=== PATIENT | female | born 1945 | race Caucasian/White ===

== ENCOUNTER 2017-11-03 11:39 | Emergency (ER) | payer MEDICARE ==
[2017-11-03] MEDS ORDERED: TETANUS & DIPHTHERIA TOX,ADULT 0.5 ML VIAL ONE (12:44)
--- NOTE | 2017-11-03 13:10 | RAD REPORT ---
EXAM DESCRIPTION: RAD - Hand Right 2 View - 11/03/2017 12:55 pm CLINICAL HISTORY: Right hand pain and swelling FINDINGS: No fracture or dislocation is seen. No bony destructive lesion is seen
--- NOTE | 2017-11-03 13:46 | EDPHYS ---
Physician Documentation [facility] Name: Sol Tejeda Age: 72 yrs Sex: Female : 1945 Arrival Date: 11/03/2017 Time: 11:48 Bed 26 Private MD: ED Physician Raymundo Zavala HPI: 11/03 12:14 This 72 yrs old Female presents to ER via Ambulatory with complaints of rh1 Insect Bite. 12:14 The patient or guardian reports pain, swelling, tenderness. The complaints affect the rh1 dorsal aspect of middle phalanx of right index finger and dorsal aspect of distal phalanx of right index finger. Context: The problem was sustained at home, resulted from an unknown cause. Onset: The symptoms/episode began/occurred last night. Modifying factors: The symptoms are alleviated by nothing, the symptoms are aggravated by movement. Associated signs and symptoms: Pertinent negatives: cyanosis distally, decreased sensation distally, fever, numbness distally, tingling distally, vomiting. Severity of symptoms: At their worst the symptoms were moderate, in the emergency department the symptoms are unchanged. The patient has not experienced similar symptoms in the past. The patient has not recently seen a physician. Pt. reports she was working outside in garden yesterday, working with [employer]. Last night she noticed redness, "blue color" at palmar aspect of right index finger, swelling, and tenderness. This am swelling and redness have improved, there is no blue discoloration, and she continues with tenderness and she noticed a small "black spot" at dorsal aspect of finger. She is unaware of a specific injury yesterday, states "I don't know if a spider bit me, or if I might have gotten a lupe cutler thorn in it." Denies any paresthesias, weakness, fever/chills. Denies any need for pain medication at this time.. Historical: - Allergies: 11:52 Latex, Natural Rubber; la1 - Home Meds: 12:01 lisinopril 20 mg oral tab [Active]; Simvastatin Oral 1 tab once daily [Active]; tw2 - PMHx: 11:52 Hypertension; Pneumonia; psoriasis; la1 - Immunization history:: Adult Immunizations up to date, Last tetanus immunization: unknown. - Social history:: Smoking status: Patient/guardian denies using tobacco. ROS: 12:14 Constitutional: Negative for fever, chills rh1 12:14 Abdomen/GI: Negative for nausea and vomiting. 12:14 MS/extremity: Positive for decreased range of motion, erythema, pain, swelling, tenderness, Negative for paresthesias. 12:14 Skin: Positive for cellulitis, erythema, swelling. 12:14 Neuro: Negative for numbness, tingling, weakness. 12:14 All other systems are negative. Exam: 12:14 Constitutional: This is a well developed, well nourished patient who is awake, alert, rh1 and in no acute distress. Head/Face: Normocephalic, atraumatic. Cardiovascular: Regular rate and rhythm with a normal S1 and S2. No gallops, murmurs, or rubs. No JVD. No pulse deficits. Respiratory: Lungs have equal breath sounds bilaterally, clear to auscultation. No rales, rhonchi or wheezes noted. No increased work of breathing. 12:14 Musculoskeletal/extremity: Extremities: grossly normal except: noted in the dorsal aspect of middle phalanx of right index finger and dorsal aspect of distal phalanx of right index finger: decreased ROM, erythema, pain, swelling, tenderness, with mild swelling at DIP and distal phalanx, mild erythema primarily at dorsal aspect of finger; no sausage finger, no pain with passive extension, There is no evidence of deformity, ecchymosis, ROM: intact in all extremities, full active range of motion, in the left hand, right arm and left arm, and all fingers at right hand other than index, full passive range of motion, in the right hand, left hand, right arm and left arm, limited active range of motion, in the dorsal aspect of middle phalanx of right index finger and dorsal aspect of distal phalanx of right index finger, limited active range of motion due to pain, in the dorsal aspect of middle phalanx of right index finger and dorsal aspect of distal phalanx of right index finger, limited passive range of motion due to pain, in the dorsal aspect of middle phalanx of right index finger and dorsal aspect of distal phalanx of right index finger, Pulses: noted to be 2+ in the right radial artery and left radial artery, Perfusion: the extremity is pink, warm, with brisk capillary refill, Sensation intact. 12:14 Skin: abscess, not appreciated, cellulitis, that is minimal, that is mild, well demarcated, on the dorsal aspect of distal middle phalanx of right index finger and dorsal aspect of distal phalanx of right index finger. 12:14 Neuro: Orientation: is normal, to person, place \\T\\ time. Mentation: is normal, lucid, able to follow commands, Motor: is normal, moves all fours, Sensation: is normal, no obvious gross deficits, numbness, is not appreciated, tingling, is not appreciated, Gait: is steady, at a normal pace, without difficulty. Vital Signs: 11:52 BP 116 / 69; Pulse 75; Resp 16; Temp 97.1; Pulse Ox 100% on R/A; Weight 88.45 kg; la1 Height 5 ft. 9 in. (175.26 cm); 13:11 BP 115 / 67; Pulse 66; Resp 16; Pulse Ox 99% on R/A; tw2 11:52 Body Mass Index 28.80 (88.45 kg, 175.26 cm) la1 MDM: 12:14 Patient medically screened. rh1 13:44 Data reviewed: vital signs, nurses notes, radiologic studies, plain films, and as a rh1 result, I will. Data interpreted: Pulse oximetry: on room air is 99 %. Interpretation: normal. 13:44 Counseling: I had a detailed discussion with the patient and/or guardian regarding: the rh1 historical points, exam findings, and any diagnostic results supporting the discharge/admit diagnosis, radiology results, the need for outpatient follow up, a family practitioner, a hand specialist, to return to the emergency department if symptoms worsen or persist or if there are any questions or concerns that arise at home. 13:44 Special discussion: I discussed in detail with the patient the higher chance of wound rh1 infection based on his presenting history. discussed potential for fungal infection with some lupe thorn sticks, and importance of monitoring finger for healing. 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 Exp: tw2 12/22/2019. Lot #: [id number]. } Route: IM; Site: right deltoid; 13:41 Follow up: Response: No adverse reaction tw2 Disposition: 17:48 Co-signature as Attending Physician, Raymundo Zavala MD. rn Disposition: 11/03/17 13:46 Discharged to Home. Impression: Cellulitis of right finger. - Condition is Stable. - Discharge Instructions: Cellulitis. - Prescriptions for Keflex 500 mg Oral Capsule - take 1 capsule by ORAL route every 12 hours for 10 days; 20 capsule. Bactrim DS 800- 160 mg Oral Tablet - take 1 tablet by ORAL route every 12 hours for 10 days; 20 tablet. - Medication Reconciliation Form, Thank You Letter, Antibiotic Education, Prescription Opioid Use form. - Follow up: Private Physician; When: 1 - 2 days; Reason: Recheck today's complaints, Continuance of care, Re-evaluation by your physician. Follow up: Emergency Department; When: As needed; Reason: Fever > 102 F, If symptoms return, Trouble breathing, Worsening of condition. Follow up: Omar Baker MD; When: 1 - 2 days; Reason: Further diagnostic work-up, Recheck today's complaints, Continuance of care. - Problem is new. - Symptoms are unchanged. Signatures: Dispatcher [employer] EDMS Raymundo Zavala MD MD rn Attema, Lee, RN RN la1 Keila Maravilla NP RESIN MAKER [facility] Samreen Rainey RN RN tw2 Corrections: (The following items were deleted from the chart) 13:45 12:14 Pt. reports she was working outside in garden yesterday, working with [employer]. Last night she noticed redness, "blue color" at palmar aspect of right index finger, swelling, and tenderness. This am swelling and redness have improved, there is no blue discoloration, and she continues with tenderness and she noticed a small "black spot" at dorsal aspect of finger. She is unaware of a specific injury yesterday, states "I don't know if a spider bit me, or if I might have gotten a lupe cutler thorn in it." Denies any paresthesias, weakness, fever/chills.. [facility] 15:25 13:44 Counseling: I had a detailed discussion with the patient and/or guardian [facility] regarding: the historical points, exam findings, and any diagnostic results supporting the discharge/admit diagnosis, radiology results, the need for outpatient follow up, a family practitioner, a hand specialist, to return to the emergency department if symptoms worsen or persist or if there are any questions or concerns that arise at home, rh1
--- NOTE | 2017-11-03 13:46 | ER ---
Nurse's Notes [facility] Name: Sol Tejeda Age: 72 yrs Sex: Female : 1945 Arrival Date: 11/03/2017 Time: 11:48 Bed 26 Private MD: Diagnosis: Cellulitis of right finger Presentation: 11/03 11:51 Presenting complaint: Patient states: My right index finger is red and swollen. la1 Transition of care: patient was not received from another setting of care. Onset of symptoms was November 03, 2017. Care prior to arrival: None. 11:51 Method Of Arrival: Ambulatory la1 11:51 Acuity: LORNE 4 la1 Triage Assessment: 12:02 Bite description: by unknown if insect bite or a thorn from the lupe cutler, animal tw2 information:. Historical: - Allergies: 11:52 Latex, Natural Rubber; la1 - Home Meds: 12:01 lisinopril 20 mg oral tab [Active]; Simvastatin Oral 1 tab once daily [Active]; tw2 - PMHx: 11:52 Hypertension; Pneumonia; psoriasis; la1 - Immunization history:: Adult Immunizations up to date, Last tetanus immunization: unknown. - Social history:: Smoking status: Patient/guardian denies using tobacco. Screenin:55 Abuse screen: Denies threats or abuse. Nutritional screening: No deficits noted. tw2 Tuberculosis screening: No symptoms or risk factors identified. Fall Risk None identified. Assessment: 11:58 Reassessment:. General: Appears in no apparent distress. well groomed, Behavior is tw2 calm, cooperative, appropriate for age. Pain: Complains of pain in dorsal aspect of distal phalanx of right index finger and dorsal aspect of middle phalanx of right index finger. Neuro: Level of Consciousness is awake, alert, obeys commands, Oriented to person, place, time, situation. Cardiovascular: Denies chest pain, shortness of breath, Capillary refill < 3 seconds Patient's skin is warm and dry. Respiratory: Airway is patent Respiratory effort is even, unlabored, Respiratory pattern is regular, symmetrical. GI: No signs and/or symptoms were reported involving the gastrointestinal system. : No signs and/or symptoms were reported regarding the genitourinary system. EENT: No signs and/or symptoms were reported regarding the EENT system. Derm: Skin is intact, is healthy with good turgor, Skin is red, Reports increased redness and swelling since yesterday when she was working in her flower bed, was not wearing gloves, states "might have gotten a thorn in there, i see this black tip but i dont really know, my doctors office was full and suggested i have someone look at it". Musculoskeletal: Range of motion: intact in all extremities, Swelling present in dorsal aspect of distal phalanx of right index finger, dorsal aspect of middle phalanx of right index finger and right index fingernail. 12:17 Reassessment: provider is at bedside at this time. tw2 13:11 Reassessment: Patient appears in no apparent distress at this time. No changes from tw2 previously documented assessment. Patient and/or family updated on plan of care and expected duration. Pain level reassessed. Patient is alert, oriented x 3, equal unlabored respirations, skin warm/dry/pink. 13:49 Reassessment: Patient appears in no apparent distress at this time. No changes from tw2 previously documented assessment. Patient and/or family updated on plan of care and expected duration. Pain level reassessed. Patient is alert, oriented x 3, equal unlabored respirations, skin warm/dry/pink. Vital Signs: 11:52 BP 116 / 69; Pulse 75; Resp 16; Temp 97.1; Pulse Ox 100% on R/A; Weight 88.45 kg; la1 Height 5 ft. 9 in. (175.26 cm); 13:11 BP 115 / 67; Pulse 66; Resp 16; Pulse Ox 99% on R/A; tw2 11:52 Body Mass Index 28.80 (88.45 kg, 175.26 cm) la1 ED Course: 11:48 Patient arrived in ED. as 11:51 Triage completed. la1 11:52 Arm band placed on left wrist. la1 11:55 Samreen Rainey, MACKENZIE is Primary Nurse. tw2 11:59 Keila Maravilla NP is PHCP. rh1 11:59 Raymundo Zavala MD is Attending Physician. rh1 12:00 Call light in reach. Pulse ox on. NIBP on. tw2 12:53 X-ray completed. Portable x-ray completed in exam room. Patient tolerated procedure ml well. 13:45 Omar Baker MD is Referral Physician. 1 13:48 Awaiting: awaiting provider CATRACHO Juarez to give pt results, discharge diagnoses, and tw2 instructions at this time. 13:49 No provider procedures requiring assistance completed. Patient did not have IV access tw2 during this emergency room visit. 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 Exp: tw2 12/22/2019. Lot #: [id number]. } Route: IM; Site: right deltoid; 13:41 Follow up: Response: No adverse reaction tw2 Outcome: 13:46 Discharge ordered by . rh1 13:57 Discharged to home ambulatory. tw2 13:57 Condition: stable 13:57 Discharge instructions given to patient, Instructed on discharge instructions, follow up and referral plans. medication usage, Demonstrated understanding of instructions, follow-up care, medications, Prescriptions given X 2. 13:58 Patient left the ED. tw2 Signatures: Aliyah Kearns Melissa ml Attema, Lee RN RN [facility] Keila Maravilla NP PHOTO MACHINE OPERATOR 1 Samreen Rainey RN RN tw2
[2017-11-03 14:07] VITALS: TEMP 97.1
[2017-11-03 14:08] VITALS: BP 115/67; O2SAT 99
== END 2017-11-03 13:58 | disposition home or self-care (01) ==
LOC: ER 11:39
DX: L03.011 Cellulitis of right finger (principal); I10 Essential (primary) hypertension; Z91.040 Latex allergy status; Z91.048 Other nonmedicinal substance allergy status; Z23 Encounter for immunization
CPT/HCPCS: 90714; 99283